=== PATIENT | male | born 1945 | race Caucasian/White ===

== ENCOUNTER 2017-06-24 10:13 | Day surgery (SDC) | payer MEDICARE ==
[~2017-06-24] VITALS: Ht 185.4 cm; Wt 93.2 kg
[~2017-06-24 10:13] MED LIST: AMIO200T PO; AMLO5TAB4 PO; APIX5TAB PO; ATOR20TA PO; DILT240C80 PO; DOXA2TAB9 PO; FENT1PAT77 TD; FINA5TAB4 PO; FLUO20CA8 PO; LISI-420 PO; OXYC-296 PO; SIMV40TA3 PO; ZOLP10TA5 PO
[2017-06-24 10:35] VITALS: BP 129/84
[2017-06-24] MEDS ORDERED: SODIUM CHLORIDE 0.9% 1,000 ML IV ONE (11:00)
[2017-06-24] MEDS ORDERED: TRAM50TA2 PO (11:12)
[2017-06-24] MEDS ORDERED: ASPI-496 PO (11:12)
[2017-06-24] MEDS ORDERED: LEVO125T5 PO (11:12)
[2017-06-24] MEDS ORDERED: CHLO25TA PO (11:12)
[2017-06-24] MEDS ORDERED: BUPR1FIL5 PO (11:12)
[2017-06-24 11:23] LABS: HEMATOCRIT 44.9 % (39.2-51.8); HEMOGLOBIN 15.1 g/dL (13.7-18.0); WHITE BLOOD COUNT 11.1 x10^3/uL (3.4-10)
[2017-06-24 11:32] LABS: BLOOD UREA NITROGEN 27 mg/dL (7-18)
[2017-06-24] MEDS ORDERED: POTASSIUM CHLORIDE 20 MEQ TAB.ER.PRT PO ONE (13:00)
== END 2017-06-24 14:00 ==
LOC: CACL 10:13
PROVIDERS: ATTEND Internal Medicine Cardiovascular Disease
DX: I48.0 Paroxysmal atrial fibrillation (principal); E78.5 Hyperlipidemia, unspecified; I10 Essential (primary) hypertension; I25.10 Atherosclerotic heart disease of native coronary artery without angina pectoris; I34.0 Nonrheumatic mitral (valve) insufficiency; Z87.891 Personal history of nicotine dependence; Z79.82 Long term (current) use of aspirin
CPT/HCPCS: 36415; 80048; 85025; 92960; 93312; 93321; 93325

== ENCOUNTER 2017-07-31 09:29 | Day surgery (SDC) | payer MEDICARE ==
[~2017-07-31] VITALS: Ht 185.4 cm; Wt 93.2 kg
[~2017-07-31 09:29] MED LIST changes: +ASPI-496 PO; +BUPR1FIL5 PO; +CHLO25TA PO; +LEVO125T5 PO; +TRAM50TA2 PO
[2017-07-31 09:38] VITALS: BP 148/102
[2017-07-31] MEDS ORDERED: RIVA20TA PO (09:49)
[2017-07-31] MEDS ORDERED: AMIO200T42 PO (09:50)
[2017-07-31] MEDS ORDERED: AMLO10TA2 PO (09:53)
[2017-07-31] MEDS ORDERED: ATOR40TA PO (09:54)
[2017-07-31] MEDS ORDERED: LEVO50CA2 PO (09:56)
[2017-07-31 10:09] LABS: ANION GAP 7 mmol/L (5-15); CALCIUM 8.3 mg/dL (8.5-10.1); CHLORIDE 105 mmol/L (98-107); CREATININE 1.28 mg/dL (0.7-1.3)
[2017-07-31] MEDS ORDERED: PROPOFOL 10 MG/ML, 20ML ONE (10:11)
[2017-07-31] MEDS ORDERED: POTA20TA89 PO (10:19)
== END 2017-07-31 11:59 | disposition home or self-care (01) ==
LOC: CACL 09:29
PROVIDERS: ATTEND Internal Medicine Cardiovascular Disease
DX: I48.0 Paroxysmal atrial fibrillation (principal); I10 Essential (primary) hypertension; Z95.5 Presence of coronary angioplasty implant and graft; E78.5 Hyperlipidemia, unspecified; I25.10 Atherosclerotic heart disease of native coronary artery without angina pectoris; E03.9 Hypothyroidism, unspecified; Z79.82 Long term (current) use of aspirin; Z79.899 Other long term (current) drug therapy
CPT/HCPCS: 36415; 80048; 92960; J2704

== ENCOUNTER 2018-11-08 13:40 | Outpatient (CLI) | payer MEDICARE ==
[~2018-11-08 13:40] MED LIST changes: +AMIO200T42 PO; +AMLO10TA8 PO; +ATOR40TA PO; +LEVO50CA2 PO; +POTA20TA89 PO; +RIVA20TA PO
== END 2018-11-08 23:59 | disposition home or self-care (01) ==
LOC: RAD 13:40
PROVIDERS: ATTEND Thoracic Surgery (Cardiothoracic Vascular Surgery)
DX: Z01.818 Encounter for other preprocedural examination (principal); I25.10 Atherosclerotic heart disease of native coronary artery without angina pectoris; K80.20 Calculus of gallbladder without cholecystitis without obstruction; I65.23 Occlusion and stenosis of bilateral carotid arteries; I48.1 Persistent atrial fibrillation; I10 Essential (primary) hypertension; E07.9 Disorder of thyroid, unspecified
CPT/HCPCS: 71250; 93880

== ENCOUNTER 2018-12-23 08:02 | Observation (INO) | payer MEDICARE ==
[2018-12-20 11:28] VITALS: BP 145/102
[2018-12-20 11:56] LABS: BASOPHILS # (AUTO) 0.08 x10^3/uL (0-0.1); BASOPHILS % (AUTO) 1 % (0-1); EOSINOPHILS # (AUTO) 0.13 x10^3/uL (0-0.4); EOSINOPHILS % (AUTO) 2 % (1-7); LYMPHOCYTES # (AUTO) 1.56 x10^3/uL (1-3.4); LYMPHOCYTES % (AUTO) 19 % (22-44); MD NO; MEAN CORPUSCULAR HEMOGLOBIN 28.8 pg (27.5-34.5); MEAN CORPUSCULAR HGB CONC 32.4 g/dL (33.2-36.2); MEAN PLATELET VOLUME 8.1 fL (7.4-10.4); MONOCYTES # (AUTO) 0.75 x10^3/uL (0.2-0.8); MONOCYTES % (AUTO) 9 % (2-9); NEUTROPHILS % (AUTO) 70 % (42-75); PLATELET COUNT 323 x10^3/uL (130-400); RED BLOOD COUNT 4.98 x10^6/uL (4.38-5.82); RED CELL DISTRIBUTION WIDTH 14.9 % (9.4-14.8)
[2018-12-20 12:00] LABS: ALANINE AMINOTRANSFERASE 26 U/L (12-78); ALBUMIN 3.5 g/dL (3.4-5.0); ANION GAP 7 mmol/L (5-15); CALCIUM 9.1 mg/dL (8.5-10.1); CHLORIDE 111 mmol/L (98-107); CREATININE 1.27 mg/dL (0.7-1.3)
[2018-12-20 12:03] LABS: ALKALINE PHOSPHATASE 152 U/L (45-117); BILIRUBIN,TOTAL 0.8 mg/dL (0.2-1.0); TOTAL PROTEIN 6.9 g/dL (6.4-8.2)
[~2018-12-23] VITALS: Ht 185.4 cm; Wt 94.8 kg
[~2018-12-23 08:02] MED LIST changes: +LEVO112T4 PO; +SUGAMMADEX 200 MG/2 ML IVPush ONE
[2018-12-23] MEDS ORDERED: SODIUM CHLORIDE 0.9% 1,000 ML IV SCH (08:59)
[2018-12-23] MEDS ORDERED: OXYB5TAB7 PO (09:57)
[2018-12-23] MEDS ORDERED: BUPR1FIL5 PO-COUM (09:57)
[2018-12-23] MEDS ORDERED: LISI5TAB7 PO (09:57)
[2018-12-23] MEDS ORDERED: TRAM50TA2 PO (09:57)
[2018-12-23] MEDS ORDERED: FINA5TAB4 PO (09:57)
[2018-12-23] MEDS ORDERED: ATOR40TA PO (09:57)
[2018-12-23] MEDS ORDERED: FENTANYL PF 250 MCG/5ML ONE (10:00)
[2018-12-23] MEDS ORDERED: PHENYLEPHRINE 10 MG/ML ONE (10:49)
[2018-12-23] MEDS ORDERED: PROTAMINE SULFATE 10 MG/ML, 5ML ONE (10:49)
[2018-12-23] MEDS ORDERED: LIDOCAINE 1%, 20ML ONE (11:05)
[2018-12-23] MEDS ORDERED: APIXABAN 5 MG TABLET ONE (11:17)
[2018-12-23] MEDS ORDERED: NEOSTIGMINE 1 MG/ML, 10ML ONE (14:08)
[2018-12-23] MEDS ORDERED: DEXAMETHASONE 4 MG/ML, 1ML ONE (14:08)
[2018-12-23] MEDS ORDERED: ROCURONIUM 10MG/ML,5ML ONE (14:08)
[2018-12-23] MEDS ORDERED: PROPOFOL 10 MG/ML, 20ML ONE (14:08)
[2018-12-23] MEDS ORDERED: ONDANSETRON 2MG/ML, 2ML ONE (14:08)
[2018-12-23] MEDS ORDERED: GLYCOPYRROLATE 0.2MG/1ML, 5ML ONE (14:08)
[2018-12-23] MEDS ORDERED: hydrALAzine 20 MG/ML, 1ML IV PRN (15:00)
[2018-12-23] MEDS ORDERED: MIDAZOLAM 1 MG/ML, 2ML IV PRN (15:00)
[2018-12-23] MEDS ORDERED: FENTANYL PF 100 MCG/2ML IV PRN (15:00)
[2018-12-23] MEDS ORDERED: PROMETHAZINE 25 MG/ML, 1ML IV PRN (15:00)
[2018-12-23] MEDS ORDERED: METOPROLOL 1 MG/ML, 5ML IV PRN (15:00)
[2018-12-23] MEDS ORDERED: OXYcodone 5 MG/5 ML ORAL.SOL UDC PO PRN (15:00)
[2018-12-23] MEDS ORDERED: ACETAMINOPHEN 325 MG TABLET PO PRN (15:00)
[2018-12-23] MEDS ORDERED: ONDANSETRON 2MG/ML, 2ML IV PRN (15:00)
[2018-12-23] MEDS ORDERED: OXYcodone 5 MG/5 ML ORAL.SOL UDC ONE (15:25)
[2018-12-23] MEDS ORDERED: ACETAMINOPHEN 650 MG/20.3 ML UDC ONE (15:25)
[2018-12-23] MEDS ORDERED: APIXABAN 5 MG TABLET PO STA (15:34)
[2018-12-23] MEDS: APIXABAN 5 MG TABLET PO SCH ×2 (15:42→21:14)
[2018-12-23] MEDS: OXYBUTYNIN CHLORIDE 5 MG TABLET PO SCH ×2 (18:25→21:14)
[2018-12-23 20:03] VITALS: BP 142/86
[2018-12-23] MEDS ORDERED: ATORVASTATIN 40 MG TABLET PO SCH (21:00)
[2018-12-23] MEDS ORDERED: ZOLPIDEM 10MG TABLET PO SCH (21:00)
[2018-12-23] MEDS ORDERED: APIXABAN 5 MG TABLET PO SCH (21:00)
[2018-12-24 02:09] VITALS: BP 138/72
[2018-12-24 06:17] VITALS: BP 143/94
[2018-12-24] MEDS ORDERED: FLUOXETINE 10 MG CAP PO SCH (09:00)
[2018-12-24] MEDS: OXYBUTYNIN CHLORIDE 5 MG TABLET PO SCH (09:00)
[2018-12-24] MEDS ORDERED: FINASTERIDE 5 MG TABLET PO SCH (09:00)
[2018-12-24] MEDS ORDERED: AMLODIPINE 10 MG TAB PO SCH (09:00)
[2018-12-24] MEDS ORDERED: LEVOTHYROXINE 112 MCG TABLET PO SCH (09:00)
[2018-12-24] MEDS ORDERED: LISINOPRIL 5 MG TABLET PO SCH (09:00)
[2018-12-24] MEDS ORDERED: AMIODARONE 200 MG TABLET PO SCH (09:00)
[2018-12-24] MEDS ORDERED: BUPRENORPHINE /NALOXONE 2-0.5MG FILM SL SCH (09:00)
[2018-12-24] MEDS: APIXABAN 5 MG TABLET PO SCH (09:01)
== END 2018-12-24 14:00 | disposition home or self-care (01) ==
LOC: CACL 08:02 → 5SO 15:34 → CACL 15:34 → 5SO 15:54 → DCLOUNGE 12-24 13:53
PROVIDERS: ADMIT Internal Medicine Cardiovascular Disease; ATTEND Internal Medicine Cardiovascular Disease
DX: I48.91 Unspecified atrial fibrillation (principal); I48.92 Unspecified atrial flutter
CPT/HCPCS: 36415; 71046; 80053; 85025; 85347; 93005; 93306; 93655; 93656; 93662; C1730; C1759; C1760; C1766; C1893; C1894; C2630; G0378; J1100; J2370; J2405; J2704; J2710; J2720; J3010; J3490

== ENCOUNTER 2019-03-02 14:43 | Outpatient (CLI) | payer MEDICARE ==
[~2019-03-02 14:43] MED LIST changes: +BUPR1FIL5 PO-COUM; +LISI5TAB7 PO; +OXYB5TAB7 PO; -SUGAMMADEX 200 MG/2 ML IVPush ONE
== END 2019-03-02 23:59 | disposition home or self-care (01) ==
LOC: CFH 14:43
PROVIDERS: ATTEND Registered Nurse
DX: I08.1 Rheumatic disorders of both mitral and tricuspid valves (principal); I50.9 Heart failure, unspecified; I48.91 Unspecified atrial fibrillation; I25.2 Old myocardial infarction
CPT/HCPCS: 93306